=== PATIENT | female | born 1985 | race African-American/Black ===

== ENCOUNTER 2020-08-10 06:35 | Day surgery (SDC) | payer MEDICAID ==
[2020-08-08 11:51] LABS: BASOPHILS 0.8 % (0-2); EOSINOPHILS 0.7 % (0-7); HEMATOCRIT 37.6 % (36.0-48.0); HEMOGLOBIN 12.9 g/dL (12-16); IMMATURE GRANULOCYTES 0.1 % (0-5); LYMPHOCYTE ABS# 1.69 10x3/uL (1.18-3.74); LYMPHOCYTES 23.8 % (15-50); MCH 30.2 pg (26.0-34.0); MCHC 34.3 g/dL (31.0-37.0); MCV 88.1 fL (80.0-100.0); MONOCYTES 6.2 % (2-11); NEUTROPHIL ABS# 4.86 10x3/uL (1.56-6.13); NEUTROPHILS 68.4 % (40-80); PLATELET COUNT 295 10x3/uL (130-400); RBC 4.27 10x6/uL (4.00-5.40); RDW 12.5 % (11.5-14.5); WBC 7.1 10x3/uL (4.8-10.8)
[~2020-08-10] VITALS: Ht 160 cm; Wt 81.4 kg
--- NOTE | ~2020-08-10 | OP ---
PATIENT NAME: ARGELIA CHRISTENSEN MEDICAL RECORD: [id number] :89 LOCATION:.[facility] ADMISSION DATE: SURGEON: FRANCIS HENDERSON MD DATE OF OPERATION: 08/10/2020 PREOPERATIVE DIAGNOSIS: Persistent vaginal discharge. POSTOPERATIVE DIAGNOSIS: Persistent vaginal discharge. PROCEDURE: Hysteroscopy, dilation and curettage. SURGEON: Dr. Francis Henderson ANESTHESIA: General endotracheal. INTRAVENOUS FLUIDS: Per anesthesia record. HYSTEROSCOPIC FLUID LOSS: Less than 50 cc of 0.9 normal saline. COMPLICATIONS: None apparent. SPECIMENS: Endometrial curettings. FINDINGS: 1. Grossly normal-appearing external genitalia and cervix. 2. Proliferative appearing endometrium. PROCEDURE: The patient was taken to the operating room where general anesthesia was achieved without difficulty. The patient was prepped and draped in normal sterile fashion in the dorsal lithotomy position in the [facility]. Bladder was drained of approximately 100 cc of straw colored urine. At this point, a Graves speculum was placed into the vagina and the cervix was grasped on the anterior lip with a single tooth tenaculum. The patient was sounded to approximately 9 cm. At this point, the patient was dilated to approximately 5 mm, at which point, the hysteroscope was introduced into the cervix. The uterus was insufflated with 0.9 normal saline. Survey of the endometrial cavity, lower uterine segment of cervix and vagina were then performed. Following hysteroscopy of the uterus, curettage was performed in all 4 quadrants with minimal bleeding noted. The tenaculum was removed followed by the speculum. The patient tolerated the procedure well and was transported to postanesthesia recovery stable without incident. TRANSINT:[id number] Voice Confirmation ID: [id number] DOCUMENT ID: [id number] FRANCIS HENDERSON MD CC: [id number] DICTATION DATE: 08/16/20 1544 CHANGE MANAGEMENT ANALYST: 08/16/202111 [facility] 08/10/20 [id number] [place] [address]
[~2020-08-10 06:35] MED LIST: ADIPEX-P37.5 MG PO; LINZESS145 MCG PO
[2020-08-10 07:18] VITALS: BP 114/65; Ht 160 cm; Wt 81.4 kg
[2020-08-10 07:42] LABS: HCG URINE NEGATIVE (NEGATIVE)
--- NOTE | 2020-08-10 13:24 | NUR ---
IV D/C'D WITH CANNULA INTACT, PRESSURE HELD AND DRSG PLACED. DISCHARGE INSTRUCTIONS GIVEN AND PT VERBALIZED AN UNDERSTANDING. DISCHARGED IN STABLE CONDIITO WITH MINIMAL VAGINAL BLEEDING
== END 2020-08-10 12:05 | disposition home or self-care (01) ==
LOC: D.OPS 06:35
PROVIDERS: ATTEND Obstetrics & Gynecology
DX: N89.8 Other specified noninflammatory disorders of vagina (principal)